=== PATIENT | male | born 1990 | race Caucasian/White ===

== ENCOUNTER 2020-11-12 12:13 | Outpatient (CLI) | payer SELFPAY ==
[2020-11-13 01:35] LABS: SARS-CoV-2 PCR by NAA Not Detected (NotDetected)
== END 2020-11-12 12:14 | disposition home or self-care (01) ==
LOC: LABBT 12:13
PROVIDERS: ATTEND Orthopaedic Surgery
DX: Z01.812 Encounter for preprocedural laboratory examination (principal); S92.402A Displaced unspecified fracture of left great toe, initial encounter for closed fracture; Z20.822 Contact with and (suspected) exposure to COVID-19
CPT/HCPCS: 87635; U0003; U0005

== ENCOUNTER 2020-11-16 10:26 | Day surgery (SDC) | payer OTHER ==
[2020-11-13 08:45] VITALS: BMI 27.6
[2020-11-16] MEDS ORDERED: Midazolam HCl 2 mg/2 ml Vial ONE (12:17)
[2020-11-16] MEDS ORDERED: Fentanyl 100 MCG/2 ML VIAL ONE (12:28)
[2020-11-16] MEDS ORDERED: Ondansetron PF 4 MG/2 ML Vial ONE (12:42)
[2020-11-16] MEDS ORDERED: Dexamethasone 20 MG/5 ML VIAL ONE (12:42)
[2020-11-16] MEDS ORDERED: Lidocaine 1% PF 5 ML VIAL ONE (12:42)
[2020-11-16] MEDS ORDERED: PROPOFOL 200 MG/20 ML VIAL ONE (12:42)
[2020-11-16] MEDS ORDERED: Ketorolac Tromethamine 30 MG/ML VIAL ONE (12:42)
[2020-11-16] MEDS ORDERED: Bupivacaine PF 0.5% 30 ML VIAL ONE (13:02)
[2020-11-16] MEDS ORDERED: Meperidine HCl/PF 25 MG/ML VIAL ONE (13:59)
== END 2020-11-16 15:30 | disposition home or self-care (01) ==
LOC: SDC 10:26
PROVIDERS: ATTEND Orthopaedic Surgery
PROC: 0QSR04Z Reposition Left Toe Phalanx with Internal Fixation Device, Open Approach (ICD-10-PCS; principal; 2020-11-16)
DX: S92.412A Displaced fracture of proximal phalanx of left great toe, initial encounter for closed fracture (principal); F17.200 Nicotine dependence, unspecified, uncomplicated; W20.8XXA Other cause of strike by thrown, projected or falling object, initial encounter; Y99.0 Civilian activity done for income or pay
CPT/HCPCS: 76000; J0690; J1100; J1885; J2175; J2250; J2405; J2704; J3010; S0020